=== PATIENT | female | born 1940 | race Caucasian/White ===

== ENCOUNTER 2016-07-08 23:25 | Emergency (ER) | payer MEDICARE, BC ==
[2016-07-09 01:18] LABS: HEMOGLOBIN 14.3 gm/dl (12.3-15.3); RED BLOOD COUNT 4.62 M/UL (4.00-5.10); WHITE BLOOD COUNT 8.3 K/UL (4.5-11.0)
[2016-07-09 01:43] LABS: BUN/CREATININE RATIO 21 (0-10)
== END 2016-07-09 03:49 | disposition home or self-care (01) ==
LOC: ER1 23:25
PROVIDERS: Family Medicine
DX: R00.2 Palpitations (principal); R00.0 Tachycardia, unspecified; J45.909 Unspecified asthma, uncomplicated; Z79.84 Long term (current) use of oral hypoglycemic drugs; Z79.899 Other long term (current) drug therapy
CPT/HCPCS: 36415; 71020; 80053; 81001; 82550; 82553; 83874; 84484; 85025; 85379; 87040; 87086; 93005; 99285